=== PATIENT | female | born 2000 | race Caucasian/White ===

== ENCOUNTER 2022-01-05 14:47 | Emergency (ER) | payer SELFPAY ==
[~2022-01-05] VITALS: Ht 152.4 cm; Wt 59.0 kg
[2022-01-05 14:48] VITALS: BP 100/67
--- NOTE | 2022-01-05 16:11 | NUR ---
UNABLE TO LOCATE PT.
== END 2022-01-05 16:11 | disposition left against medical advice (07) ==
LOC: MED 14:47
DX: R42 Dizziness and giddiness (principal); R11.10 Vomiting, unspecified; Z53.21 Procedure and treatment not carried out due to patient leaving prior to being seen by health care provider